=== PATIENT | female | born 1955 | race Caucasian/White ===

== ENCOUNTER 2018-05-02 22:03 | Emergency (ER) | payer OTHER ==
[~2018-05-02] VITALS: Ht 152.4 cm; Wt 46.8 kg
[2018-05-02 22:06] VITALS: BP 157/70; PULSE 62; TEMP 98.6
[2018-05-02] MEDS ORDERED: VITAMIN D31000 I1 PO (22:31)
[2018-05-02] MEDS ORDERED: AMOXICILLIN 8751 TAB PO (23:20)
== END 2018-05-02 23:25 | disposition home or self-care (01) ==
LOC: COL.ER 22:03
DX: H10.9 Unspecified conjunctivitis (principal)